=== PATIENT | male | born 1980 ===

== ENCOUNTER 2024-08-15 13:17 | Emergency (ER) | payer BC ==
[2024-08-15] MEDS: Ketorolac 30 MG/ML SDV IM ONE (13:51)
[2024-08-15 14:39] LABS: APPEARANCE,URINE CLEAR (CLEAR); COLOR,URINE YELLOW; GLUCOSE,URINE NEGATIVE (NEGATIVE); KETONES,URINE NEGATIVE (NEGATIVE); PH,URINE >= 9.0 (5.0-8.0); PROTEIN,URINE 30 mg/dL (NEGATIVE)
[2024-08-15 14:40] LABS: BILIRUBIN,URINE NEGATIVE (NEGATIVE); LEUKOCYTE ESTERASE,URINE NEGATIVE (NEGATIVE); NITRITE,URINE NEGATIVE (NEGATIVE); OCCULT BLOOD,URINE NEGATIVE (NEGATIVE); UROBILINOGEN,URINE 0.2 E.U./dL (0.2-1.0)
[2024-08-15 14:53] LABS: SQUAMOUS EPITHELIAL CELLS,UR FEW /HPF; WBC,URINE 0-5 /HPF
== END 2024-08-15 15:35 | disposition home or self-care (01) ==
LOC: LB.ED 13:17
DX: S32.039A Unspecified fracture of third lumbar vertebra, initial encounter for closed fracture (principal); W00.0XXA Fall on same level due to ice and snow, initial encounter; Y93.22 Activity, ice hockey
CPT/HCPCS: 72131; 72192; 81001; 96372; 99284; J1885